=== PATIENT | female | born 1990 | race Caucasian/White ===

== ENCOUNTER 2019-01-13 10:25 | Inpatient (IN) | payer OTHER | END 2019-01-16 14:00 | disposition home or self-care (01) | LOC: JDEL 10:25 → J3W 01-14 04:48 → JLDR 10:50 ==

== ENCOUNTER 2021-06-15 04:28 | Day surgery (SDC) | payer OTHER ==
[2021-06-11 11:43] VITALS: BMI 25.7
[2021-06-15] MEDS ORDERED: MIDAZOLAM HCL 2 MG/2 ML SINGLE DOSE VIAL ONE (14:34)
[2021-06-15] MEDS ORDERED: PROPOFOL 20 ML ONE (14:35)
[2021-06-15] MEDS ORDERED: ONDANSETRON 4 MG/2 ML VIAL IVPUSH PRN (14:47)
[2021-06-15] MEDS ORDERED: oxyCODONE HCL 5 MG TABLET PO PRN ×2 (14:47)
[2021-06-15] MEDS ORDERED: LACTATED RINGERS SOLUTION 1,000 ML IV SCH (15:00)
[2021-06-15 16:36] VITALS: BP 102/62; PULSE 66; TEMP 98.6
== END 2021-06-15 14:45 | disposition home or self-care (01) ==
LOC: JASU-SURG 04:28
PROVIDERS: ATTEND Urology
PROC: 0TF4XZZ Fragmentation in Left Kidney Pelvis, External Approach (ICD-10-PCS; principal; 2021-06-15 14:30)
DX: N20.0 Calculus of kidney (principal)
CPT/HCPCS: 81025

== ENCOUNTER 2023-12-21 20:32 | Emergency (ER) | payer OTHER ==
[2023-12-21 20:38] VITALS: BP 121/74; PULSE 80; RESP 16; TEMP 97.8; BMI 25.7
[2023-12-21] MEDS ORDERED: IBUPROFEN 600 MG TABLET (FP) PO ONE (22:38)
[2023-12-21] MEDS: IBUPROFEN 600 MG TABLET (FP) PO ONE (22:47)
== END 2023-12-21 23:10 | disposition home or self-care (01) ==
LOC: JER 20:32 → JERFT 20:32 → JER 23:10
DX: S50.11XA Contusion of right forearm, initial encounter (principal); W21.04XA Struck by golf ball, initial encounter; Y93.53 Activity, golf
CPT/HCPCS: 73090-TC-RT-FY; 99283-25

== ENCOUNTER 2024-12-30 17:58 | Emergency (ER) | payer BC, OTHER ==
[2024-12-30 18:04] VITALS: BMI 24.3
[2024-12-30] MEDS ORDERED: KETOROLAC TROMETHAMINE 30 MG/1 ML VIAL ONE (18:33)
[2024-12-30] MEDS ORDERED: ONDANSETRON *ODT* 4 MG TABLET ONE (18:33)
[2024-12-30] MEDS: ONDANSETRON *ODT* 4 MG TABLET SL ONE (18:38)
[2024-12-30] MEDS: KETOROLAC TROMETHAMINE 30 MG/1 ML VIAL IM ONE (18:39)
[2024-12-30 18:52] LABS: EPI CELLS 7 /uL (0-25.1); HYALINE CASTS 0 /uL (0-3.1); URINE APPEARANCE CLOUDY; URINE BACTERIA 2910 /uL (0-1359); URINE BILIRUBIN 1+ (NEGATIVE); URINE COLOR ORANGE; URINE GLUCOSE (UA) NEGATIVE (NEGATIVE); URINE KETONE NEGATIVE (NEGATIVE); URINE LEUK ESTERASE 3+ (NEGATIVE); URINE NITRITE POSITIVE (NEGATIVE); URINE PROTEIN 2+ (NEGATIVE); URINE RBC 1142 /uL (0-23.9); URINE UROBILINOGEN 1.0 mg/dL (0.2-1.0); URINE WBC 2008 /uL (0-25.8)
[2024-12-30 19:02] LABS: ABSOLUTE IMMATURE GRANULOCYTES 0.03 x10^3/uL (0.0-0.031); BASOPHILS # 0.02 x10^3/uL (0.01-0.08); EOSINOPHIL % 0.2 % (0.7-5.8); EOSINOPHILS # 0.02 x10^3/uL (0.04-0.36); MCHC 34.0 g/dl (32.2-35.5); MEAN CELL VOLUME 91.0 fl (79.4-94.8); MEAN PLT VOLUME 9.4 fl (9.4-12.3); MONOCYTE # 0.53 x10^3/uL (0.24-0.86); MONOCYTE % 4.7 % (4.7-12.5); RDW 12.1 % (12.1-16.8)
[2024-12-30 19:03] LABS: YEAST PRESENT (NEGATIVE)
[2024-12-30] MEDS: SODIUM CHLORIDE 0.9% 500 ML INFUS.BAG IV ONE (19:04)
[2024-12-30 19:16] LABS: INR 1.19 (0.83-1.09); PROTHROMBIN TIME (PATIENT) 13.1 SEC (9.7-13.0)
[2024-12-30 19:18] LABS: ACTIVATED PTT 29.4 SECONDS (25.2-36.5)
[2024-12-30 19:21] LABS: TOT PROT 7.1 g/dl (6.4-8.2)
[2024-12-30 19:22] LABS: CO2 20.0 mmol/L (21-32)
[2024-12-30 19:24] LABS: ALK PHOS 47.0 U/L (40-150)
[2024-12-30 19:26] LABS: SGOT/AST 18.0 U/L (5-34); SGPT/ALT 22.0 U/L (0-55)
[2024-12-30 19:27] LABS: CREATININE 0.67 mg/dL (0.55-1.3)
[2024-12-30] MEDS ORDERED: CEFTRIAXONE 1 GM/50 ML BAG ONE (19:38)
[2024-12-30] MEDS: CEFTRIAXONE 1 GM in DEXTROSE 5%-WATER - 100 ML IVPB ONE (19:40)
[2024-12-30 19:44] LABS: HCV DIAGNOSTIC IN-HOUSE W/RFLX NON-REACTIVE (NONREACTIVE)
[2024-12-30 20:26] LABS: GLUCOSE,RANDOM 96.0 mg/dL (74-106)
[2024-12-30 20:27] LABS: HIV INTERPRETATION NEGATIVE (NEGATIVE)
[2024-12-30 21:52] VITALS: BP 96/61; PULSE 76; RESP 19; TEMP 97.9
== END 2024-12-30 21:22 | disposition home or self-care (01) ==
LOC: JER 17:58
PROC: 3E03329 Introduction of Other Anti-infective into Peripheral Vein, Percutaneous Approach (ICD-10-PCS; principal; 2024-12-30)
PROC: 3E0233Z Introduction of Anti-inflammatory into Muscle, Percutaneous Approach (ICD-10-PCS; 2024-12-30)
DX: N39.0 Urinary tract infection, site not specified (principal); R30.0 Dysuria; R10.30 Lower abdominal pain, unspecified
CPT/HCPCS: 36415; 74176-TC; 80053; 81003; 84703; 85025; 85610; 85730; 86803; 86850; 86900; 86901; 87086; 87389; 99285-25; Q0162